=== PATIENT | female | born 1975 | race Caucasian/White ===

== ENCOUNTER 2018-12-01 08:14 | Emergency (ER) | payer SELFPAY ==
[~2018-12-01] VITALS: Ht 165.1 cm; Wt 77.1 kg
[2018-12-01 08:14] VITALS: Ht 165.1 cm; Wt 77.1 kg
[2018-12-01 09:54] VITALS: BP 168/103
== END 2018-12-01 10:10 | disposition other institution (70) ==
LOC: ED 08:14
DX: I10 Essential (primary) hypertension (principal); F15.10 Other stimulant abuse, uncomplicated; Z13.89 Encounter for screening for other disorder; Z88.0 Allergy status to penicillin

== ENCOUNTER 2018-12-01 08:41 | Emergency (ER) | payer OTHER | END 2018-12-01 10:10 | disposition other institution (70) | LOC: ED 08:41 | DX: Z02.89 Encounter for other administrative examinations (principal) ==